=== PATIENT | male | born 1930 | race Caucasian/White ===

== ENCOUNTER 2017-05-29 10:20 | Emergency (ER) | payer OTHER ==
[~2017-05-29] VITALS: Ht 165.1 cm; Wt 63.5 kg
[2017-05-29 10:50] VITALS: BP 150/75
[2017-05-29 11:50] VITALS: BP 150/75
--- NOTE | 2017-05-29 11:50 | NUR ---
PT IN CHAIR WITH AT SIDE. A&OX4. NO C/O OR DISTRESS AT THIS TIME. MD AWARE. CONTINUE TO MONITOR.
--- NOTE | 2017-05-29 12:13 | NUR ---
Patient discharged with v/s stable. Written and verbal after care instructions given and explained. Patient alert, oriented and verbalized understanding of instructions. Ambulatory with steady gait. All questions addressed prior to discharge. ID band removed. Patient advised to follow up with PMD. Rx of NAPROSYN, ACETAMINOPHEN,AND TAMIFLU given. Patient educated on indication of medication including possible reaction and side effects. Opportunity to ask questions provided and answered.
== END 2017-05-29 12:13 | disposition home or self-care (01) ==
LOC: MED 10:20
DX: J11.1 Influenza due to unidentified influenza virus with other respiratory manifestations (principal)
CPT/HCPCS: 36415; 71045; 87804; 99285